=== PATIENT | female | born 1940 | race Caucasian/White ===

== ENCOUNTER → 2019-12-30 | Emergency (ER) | payer MEDICARE, OTHER ==
[~2019-12-30] VITALS: Ht 273.1 cm; Wt 85.7 kg
[~2019-12-30] MED LIST: ALEVE; ALLOPURINOL; ALTEPLASE 50 MG/VIAL (29 MILLION IU) ONE; AMIODARONE 900MG 900 MG/500 ML BAG IV ONE; AMIODARONE HCL 150MG 100 ML ONE; ASPIR-TRIN325 MG PO; ASPIRIN; ATROPINE SULFATE 0.1 MG/ML 10ML SYR ONE; BENICAR; BENICAR HCT 401 EACH PO; BENICAR20 MG PO; CALCIUM CHLORIDE 10% 1.36 MEQ/ML 10ML SYR IV ONE; CLARITIN-D 121 EACH PO; DULERA 100 MCG/13 GM IH; EPINEPHRINE HCL SYRINGE ONE; ETOMIDATE 40 MG/ 20ML VIAL IV ONE; EVISTA; EVISTA60 MG PO; GABAPENTIN; GLIPIZIDE; GLIPIZIDE5 MG PO; HEPARIN 25000UNITS/0.45% NS 250 ML BAG IV ONE; HEPARIN SOD (PORCINE) 5,000 UNIT/ML VIAL ONE; HYDROCHLOROTH12.5 MG PO; METOPROLOL TART50 MG PO; NEXIUM40 MG PO; NITROSTAT; PATANASE30.5 GM; PROAIR; PROTONIX40 MG/ML PO; ROCURONIUM BROMIDE 1 ML ONE; SIMVASTATIN; SIMVASTATIN20 MG PO; SINGULAIR10 MG PO; ULORIC80 MG PO
--- NOTE | 2019-12-30 23:36 | NUR ---
pt arrived via c/o chest pain. pt noted hypotensive on arrival. iv's x2 placed to l wrist and l upper arm. ns bolus started to each iv per md orders. pt noted c hr rate decreasing, crash cart to room c pt placed on pacer pads. pt became unresponsive p placing pacer pads. cpr started. see code sheet for details.
--- OUTSIDE RECORDS SUMMARY | 2019-12-30 23:39 | XMS REPORT ---
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 Allergies, Adverse Reactions, Alerts This patient has no known allergies or adverse reactions. Medications This patient has no known medications. Results Test Description Test Time Test Comments Text Results Atomic Results Result Comments SCR MAMM BILATERAL VELIA CAD DIGITAL 2019-06-15 08:09:36 - SCR MAMM BILATERAL VELIA CAD DIGITALBILATERAL DIGITAL SCREENING MAMMOGRAM 3D/2D WITH CAD: 06/13/2019CLINICAL: Asymptomatic. Digital breast tomosynthesis was performed in addition to routine CC and MLO views. Current mammographic images were evaluated by either a [employer] M-Vu or a [employer] ImageChecker CAD (computer aided detection system). Comparison is made to exams dated 01/17/2018 mammogram, 01/15 mammogram, 07/28/2015 mammogram, and 07/16/2013 mammogram - [facility]. The tissue of both breasts is predominantly fatty. There are benign vascular calcifications and calcifications in both breasts. No suspicious mass, architectural distortion, malignant type calcification, or lymph node abnormality detected. Breast architecture is stable compared to prior exams.IMPRESSION: BENIGNThere is no mammographic evidence of malignancy. Resume annual screening mammography in one year. Jessenia perez/penrad:06/15/2019 08:09:36 Infant Room Teacher: Valeria SERNA, [facility] sent: BIRADS 1-2 Normal Mammogram BI-RADS: 2 Benign
--- NOTE | 2019-12-30 23:49 | NUR ---
ATROPINE GIVEN 2349--BAGGING BY R.T. 2357-CPR STARTED 2357-20MG OF ETOMIDATE
--- NOTE | 2019-12-31 | NUR ---
0000--1 GM OF MAGNESIM 0002--5000 UNITS OF HEPARIN
--- NOTE | 2019-12-31 00:02 | NUR ---
SEE CODE SHEET
[2019-12-31 00:08] LABS: PARTIAL THROMBOPLASTIN TIME 23.4 seconds (23.8-35.5); PROTHROMBIN TIME 13.8 seconds (11.9-14.5)
[2019-12-31 00:24] LABS: ALBUMIN/GLOBULIN RATIO 0.9 (0.8-2.0); CALCIUM 8.3 mg/dL (8.4-10.2); CREATININE, SERUM 1.61 mg/dL (0.57-1.11)
[2019-12-31 00:27] LABS: BASOPHILS # (AUTO) 0.1 (0.0-0.1); BASOPHILS % 0.3 % (0.0-1.0); EOSINOPHILS # (AUTO) 0.3 (0.0-0.4); EOSINOPHILS % 1.1 % (0.0-6.0); HEMATOCRIT 34.6 % (34.2-44.1); LYMPHOCYTES # (AUTO) 15.4 (1.0-3.2); LYMPHOCYTES % 60.7 % (18.0-39.1); MEAN CORPUSCULAR HEMOGLOBIN 28.6 pg (28-32); MEAN CORPUSCULAR HGB CONC 28.9 g/dL (31-35); MEAN CORPUSCULAR VOLUME 98.9 fL (81-99); MONOCYTES # (AUTO) 5.2 (0.2-0.8); MONOCYTES % 20.3 % (4.4-11.3); NEUTROPHILS # (AUTO) 4.3 (2.1-6.9); NEUTROPHILS % 16.9 % (38.7-80.0); PLATELET COUNT 128 x10e3/uL (140-360); RED CELL DISTRIBUTION WIDTH 14.2 % (11.7-14.4)
[2019-12-31 00:31] LABS: CREATINE KINASE MB 1.3 ng/mL (0-5.0)
[2019-12-31 00:41] LABS: POTASSIUM 5.1 mmol/L (3.5-5.1)
[2019-12-31 00:43] LABS: ANION GAP 5.1 mmol/L (8-16)
--- NOTE | 2019-12-31 05:10 | Consultation ---
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 I have been asked to come to the labor custodian for STEMI activated by emergency room physician and arrived in the hospital emergency room. I saw the patient was having a cardiac arrest and the ER physician and the ER team were trying to resuscitate the patient. I also managed the patient and the patient came with what appears to be sort of a chest pain. Couple of EKGs showed nonspecific intermittent conduction defect possibly left bundle branch block, one EKG shows atrial fibrillation. At this time, blood pressure is about 40/20. The patient is getting IV fluids. The patient getting cardiac massage and the patient had asystole multiple times and before that the ER physician also managing her cardiac arrest and the ACLS protocol was activated and I discussed the family members. I believe the patient is known patient with hypertension, diabetes mellitus, had two-vessel bypass surgery, complained of chest pain and the patient is an 79 years old woman. At this time with prolonged resuscitation, the patient could not be resuscitated and the patient was not taken to cardiac labor custodian. The patient pronounced by ER physician and participated in the patient's care. IMPRESSION: 1. Acute cardiopulmonary arrest. 2. Acute myocardial infarction. 3. Coronary artery disease. 4. Obesity. 5. History of hypertension. The patient had a prolonged cardiac arrest and did not take her to cardiac labor custodian. The patient in the emergency room. MD RADHA Styles/PRABHAKAR /[id number] RUFINO
--- NOTE | 2019-12-31 05:38 | NUR ---
PT REMAINS RELEASED BY [facility] PLASTIC MAKER
[2019-12-31 07:29] LABS: EOSINOPHILS % (MANUAL) 4 % (0-7); LYMPHOCYTES % (MANUAL) 72 % (19-48); MONOCYTES % (MANUAL) 3 % (3.4-9.0); NEUTROPHILS % (MANUAL) 21 % (40-74)
[2019-12-31 07:32] LABS: HYPOCHROMASIA SLIGHT; PLATELET ESTIMATE SLIGHTLY DECREASED; PLATELET MORPHOLOGY COMMENT NORMAL
== END | disposition expired ==
LOC: ER 23:36
DX: R07.9 Chest pain, unspecified (principal); I46.2 Cardiac arrest due to underlying cardiac condition; I21.29 ST elevation (STEMI) myocardial infarction involving other sites; A41.9 Sepsis, unspecified organism; I44.2 Atrioventricular block, complete; R94.31 Abnormal electrocardiogram [ECG] [EKG]; I10 Essential (primary) hypertension; E11.9 Type 2 diabetes mellitus without complications; E78.5 Hyperlipidemia, unspecified; N18.9 Chronic kidney disease, unspecified
CPT/HCPCS: 31500; 36415; 36556; 80053; 82550; 82553; 84484; 85025; 85379; 85610; 85730; 87040; 92960; 92977; 93005; 99284; J0171; J1644